=== PATIENT | male | born 1955 | race Caucasian/White ===

== ENCOUNTER 2022-08-20 13:09 | Outpatient (CLI) | payer MEDICARE | END 2022-08-20 13:10 | disposition home or self-care (01) | LOC: CSHMRI 13:09 | PROVIDERS: ATTEND Orthopaedic Surgery | DX: M19.011 Primary osteoarthritis, right shoulder (principal); M75.111 Incomplete rotator cuff tear or rupture of right shoulder, not specified as traumatic; M75.81 Other shoulder lesions, right shoulder; M62.511 Muscle wasting and atrophy, not elsewhere classified, right shoulder ==